=== PATIENT | female | born 2000 | race Two or more races ===

== ENCOUNTER 2022-03-06 18:26 | Emergency (ER) | payer MEDICAID, SELFPAY ==
[2022-03-06] VITALS (16 sets, daily range): BP systolic 118–164; BP diastolic 48–121; PULSE 56–90; RESP 14–25; TEMP 37.1; O2SAT 95–100
--- NOTE | 2022-03-06 18:56 | ED.PREGNANCY ---
HPI - General Chief complaint: Abdominal Pain Stated complaint: nausea, +preg, spotting Time Seen by Provider: 03/06/22 18:46 History of Present Illness HPI Narrative: Pt states she has been vomiting for the last several days unable to keep anything down. Pt has had two positive and one negative home test. Pt menses was supposed to be 02/21. Pt had some spotting 02/21 and 02/22 which resolved. Pt says she is constipated and has some abdominal pain with trying to move bowels but not now. Related Data Allergies Allergy/AdvReac Type Severity Reaction Status Date / Time No Known Allergies Allergy Verified 05/20/18 11:16 Review of Systems Review of Systems: All systems reviewed & are unremarkable except as noted in HPI and below Gastrointestinal: Gastrointestinal: Reports constipation, Reports nausea and Reports vomiting Genitourinary: Genitourinary: Reports no additional female genitourinary complaints Exam Const: General: healthy appearing and no acute distress Nutritional Appearance: obese Orientation/consciousness: patient oriented x3 Limitations: no limitations HENMT: Mouth: Yes Normal oral and palatal mucosa present Eyes: EOM: EOMs intact bilaterally Neck: Neck: normal visual inspection Resp: Effort & Inspection: normal respiratory effort Auscultation: clear to auscultation bilaterally Cardio: Rate: regular rate Rhythm: regular rhythm GI: GI Palp: Yes Soft to palpation Auscultation: normal bowel sounds Skin: General skin exam: normal color Rashes: no rashes Wounds: no wounds Neuro: General: patient oriented x3, moves all extremities, no meningeal signs and no focal motor deficits Cranial nerves: Yes Nystagmus not present Speech: normal speech Extrem: General: normal to inspection and no clubbing, cyanosis or edema Psych: Mental Status: mental status grossly normal Affect: normal affect Attitude: cooperative Course Course Emergency Course: pt finally comfortable after fentanyl Vital Signs Vital signs: Vital Signs Temperature 98.7 F 03/06/22 18:23 Pulse Rate 83 03/06/22 18:23 Respiratory Rate 21 H 03/06/22 18:23 Blood Pressure 163/99 H 03/06/22 18:23 Pulse Oximetry 100 03/06/22 18:23 Oxygen Delivery Room Air 03/06/22 18:23 Temperature 98.7 F 03/06/22 18:23 Pulse Rate 65 03/06/22 21:22 Respiratory Rate 16 03/06/22 21:22 Blood Pressure 164/86 H 03/06/22 21:22 Pulse Oximetry 100 03/06/22 21:22 Oxygen Delivery Room Air 03/06/22 18:23 MDM - OB/Uterine Contractions Lab Data Result diagrams: 03/06/22 18:51 03/06/22 18:51 Labs: Lab Results 03/06/22 03/06/22 03/06/22 Range/Units 18:51 18:51 18:51 WBC 7.8 (4.5-10.0) K/mm3 RBC 4.80 (4.2-5.4) M/mm3 Hgb 11.6 L (12.0-15.0) g/dL Hct 38.7 (37.0-47.0) % MCV 80.6 (80-100) fl MCH 24.2 L (26-34) pg MCHC 30.0 L (32-36) g/dl RDW 17.3 H (11.5-14.5) % Plt Count 394 H (150-375) k/mm3 MPV 10.0 (7.4-10.4) fl Immature Gran % (Auto) 0.1 (0-0.5) % Neut % (Auto) 50.0 (45.5-73.1) % Lymph % (Auto) 40.0 (18.3-44.2) % [place] % (Auto) 7.7 (2.6-8.5) % Eos % (Auto) 1.7 (0-4.4) % Baso % (Auto) 0.5 (0.2-1.2) % Lymph # (Auto) 3.12 (0.9-3.2) K/mm3 [place] # (Auto) 0.6 (0.1-0.6) K/mm3 Eos # (Auto) 0.1 (0-0.3) K/mm3 Baso # (Auto) 0.0 (0.0-0.1) K/mm3 Abs Immat Gran (auto) 0.01 (0.00-0.031) K/mm3 Absolute Neuts (auto) 3.9 (1.3-6.7) K/mm3 Absolute Nucleated RBC 0.0 (0.0-0.012) K/mm3 Nucleated RBC % 0.0 (0.0-0.2) % Sodium 139 (137-145) mmol/L Potassium 3.8 (3.4-5.0) mmol/L Chloride 106 (98-107) mmol/L Carbon Dioxide 22 (22-30) mmol/L Anion Gap 11 (8-16) mmol/L BUN 9 (7-17) mg/dL Creatinine 0.80 (0.7-1.0) mg/dL Estim Creat Clear Calc 157 ml/min Estimated GFR > 60 (59 - ) Glucose 112 H (65-110) mg/dL Calcium 9.4 (
[2022-03-06 19:00] LABS: Basophils Percent Auto 0.5 % (0.2-1.2); Eosinophils Absolute Auto 0.1 K/mm3 (0-0.3); Eosinophils Percent Auto 1.7 % (0-4.4); Hematocrit 38.7 % (37.0-47.0); Hemoglobin 11.6 g/dL (12.0-15.0); Immature Granulocyte Absolute 0.01 K/mm3 (0.00-0.031); Immature Granulocyte Percent A 0.1 % (0-0.5); Lymphocytes Absolute Auto 3.12 K/mm3 (0.9-3.2); Mean Corpuscular Hemoglobin 24.2 pg (26-34); Mean Corpuscular Volume 80.6 fl (80-100); Monocytes Absolute Auto 0.6 K/mm3 (0.1-0.6); Monocytes Percent Auto 7.7 % (2.6-8.5); Neutrophils Absolute Auto 3.9 K/mm3 (1.3-6.7); Platelet Count Result 394 k/mm3 (150-375); Red Cell Distribution Width 17.3 % (11.5-14.5); White Blood Count 7.8 K/mm3 (4.5-10.0)
[2022-03-06 19:02] LABS: Appearance Urine Cloudy (Clear); Bilirubin Urine 1+ (Negative); Blood Urine 3+ (Negative); Color Urine Yellow (Yellow); Glucose Urine UA Negative (Negative); Ketones Urine 1+ mg/dL (Negative); Leukocyte Esterase Ur Trace LEU/UL (Negative); Nitrate Urine Negative (Negative); Protein Urine 1+ mg/dL (Negative); Specific Grav Ur 1.025 (1.001-1.035); Urobilinogen Urine 0.2 mg/dL (<2.0)
[2022-03-06] MEDS: ONDANSETRON INJ 4 MG/2 ML VIAL IV PUSH (19:03)
[2022-03-06] MEDS: DEXTROSE 5%/LACTATED RINGERS 1,000 ML 999 ML IV CONT (19:06)
[2022-03-06 19:11] LABS: Bacteria Urine Trace /hpf; Mucus Urine Rare /lpf; RBC Urine >75 /hpf (0-2); Squamous Epithelial Cell Urine Many /hpf (Few); WBC Urine 16-20 /hpf
[2022-03-06 19:12] LABS: Add Urine Microscopic? YES; Alanine Aminotransferase 10 U/L (6-35); Albumin Level 4.3 g/dL (3.5-5.1); Alkaline Phosphatase 60 U/L (38-126); Anion Gap 11 mmol/L (8-16); Aspartate Amino Transferase 17 U/L (14-36); Bilirubin,Total 0.2 mg/dL (0.2-1.3); Blood Urea Nitrogen 9 mg/dL (7-17); Calcium 9.4 mg/dL (8.4-10.2); Carbon Dioxide 22 mmol/L (22-30); Chloride 106 mmol/L (98-107); Estimated CRCL calculation 157 ml/min; Estimated Glomerular Filt Rate > 60; Glucose 112 mg/dL (65-110); Lipase 62 U/L (23-300); Potassium 3.8 mmol/L (3.4-5.0); Sodium 139 mmol/L (137-145)
[2022-03-06] MEDS: FAMOTIDINE 20 MG/2 ML VIAL IV PUSH (19:59)
[2022-03-06] MEDS: fentaNYL CITRATE INJ (*CRX) 100 MCG/2 ML VIAL 25 MCG IV PUSH (21:17)
== END 2022-03-06 21:38 | disposition home or self-care (01) ==
PROVIDERS: Emergency Provider Emergency Medicine
DX: O21.0 Mild hyperemesis gravidarum (principal); Z3A.00 Weeks of gestation of pregnancy not specified
CPT/HCPCS: 36415; 80053; 81001; 81025; 83690; 85025; 87086; 87088; 96365; 96366; 96367; 96375; 99284; J0131; J2405; J3010; J7121

== ENCOUNTER 2022-07-10 08:08 | Outpatient (CLI) | payer MEDICAID, SELFPAY ==
--- NOTE | ~2022-07-10 | US_ITS ---
EXAMINATION: US right upper quadrant DATE: 07/10/2022 08:53 INDICATION: Right upper quadrant pain TECHNIQUE: Multiple grayscale and Doppler ultrasound images of the abdomen were obtained. COMPARISON: None available FINDINGS: Bowel gas obscures visualization of the pancreas. The visualized portions of the pancreas a re unremarkable. The liver is normal with normal echogenicity and echotexture. No surface nodularity. Normal hepatopetal flow in the main portal vein. Stones and sludge are present in the nondistended g allbladder. There is no gallbladder wall thickening or pericholecystic fluid. The normal common bile duct measures 4 mm. There was no sonographic Balbuena sign. IMPRESSION: 1. Stones and sludge in the otherwise normal gallbladder. Reviewed, dictated and finalized at location A.
== END 2022-07-10 08:09 | disposition home or self-care (01) ==
PROVIDERS: PCP Obstetrics & Gynecology; Visit Provider Emergency Medicine
DX: R10.11 Right upper quadrant pain (principal); K80.20 Calculus of gallbladder without cholecystitis without obstruction
CPT/HCPCS: 76705

== ENCOUNTER 2022-08-18 14:00 | Outpatient (RCR) | payer BC, SELFPAY ==
[2022-08-11 15:37] VITALS: BP 141/71; PULSE 71
--- NOTE | ~2022-08-18 | US_ITS ---
EXAMINATION: US OB BPP wo non-stress DATE: 08/11/2022 15:15 INDICATION: induced hypertension, third trimester TECHNIQUE: Real-time pelvic ultrasound was performed. The interpreting radiologist was not present fo r the study. COMPARISON: None. FINDINGS: There is a single living fetus in vertex presentation. The placenta is posterior. heart rate is 150 beats per minute (bpm). Biophysical profile performed by the technologist: breathing (30 sec sustained breathing in 30 minutes): 2 out of 2 movement (3 gross body movements in 30 minutes): 2 out of 2 tone (one episode of awfmvom-hlteuwske-moghmxo limb movement): 2 out of 2 Amniotic fluid pocket (2 cm): 2 out of 2 Total score: 8 out of 8 IMPRESSION: 1. Single living fetus in vertex presentation. 2. Biophysical profile 8 out of 8. Reviewed, dictated and finalized at location F. S ADVISOR
== END 2022-09-22 13:41 | disposition home or self-care (01) ==
LOC: ANHOBOP 14:00
PROVIDERS: Visit Provider Obstetrics & Gynecology
DX: O16.3 Unspecified maternal hypertension, third trimester (principal); Z3A.32 32 weeks gestation of pregnancy
CPT/HCPCS: 59025; 76819

== ENCOUNTER 2022-09-15 06:43 | Inpatient (IN) | payer OTHER, SELFPAY ==
[2022-09-15] VITALS (65 sets, daily range): BP systolic 98–194; BP diastolic 53–154; PULSE 47–166; RESP 12–20; TEMP 36–36.4; O2SAT 93–100; BMI 47.6
[2022-09-15] MEDS: LACTATED RINGERS 1,000 ML 999 ML IV CONT (07:12)
--- NOTE | 2022-09-15 07:19 | WPDANESEPPF ---
Anes - Initial Pre Proc Eval Procedure: Operation Date: 09/15/22 07:30 Proposed Procedures p Section - Naya Poole MD Date/Time: 09/15/22 07:19 Surgeon: Naya Poole MD Pre Op Diagnosis: C/S Patient Data Age: 22 Gender: F Height: 1.7 m Weight: 138 kg Last Vital Signs Pulse 134 H 09/15/22 07:16 BP 140/117 H 09/15/22 07:16 Allergies Allergy/AdvReac Type Severity Reaction Status Date / Time No Known Allergies Allergy Verified 05/20/18 11:16 Home Medications Medication Instructions Recorded Confirmed Type famotidine 20 mg tablet (Pepcid) 20 mg PO DAILY #20 tabs 03/06/22 09/15/22 Rx PNV 153-FA 400 mcg-om3 35 mg-dha 1 tablet PO DAILY 09/15/22 09/15/22 History 25 mg-epa 5 mg-fish oil chew tablet ( Gummies) fluoxetine 20 mg tablet 20 mg PO DAILY 09/15/22 09/15/22 History Laboratory Tests 09/15/22 09/15/22 09/15/22 07:09 07:09 07:09 WBC Pending RBC Pending Hgb Pending Hct Pending MCV Pending MCH Pending MCHC Pending RDW Pending Plt Count Pending MPV Pending Immature Gran % (Auto) Pending Neut % (Auto) Pending Lymph % (Auto) Pending [place] % (Auto) Pending Eos % (Auto) Pending Baso % (Auto) Pending Lymph # (Auto) Pending [place] # (Auto) Pending Eos # (Auto) Pending Baso # (Auto) Pending Abs Immat Gran (auto) Pending Absolute Neuts (auto) Pending Absolute Nucleated RBC Pending Nucleated RBC % Pending Sodium Potassium Chloride Carbon Dioxide Anion Gap BUN Creatinine Estim Creat Clear Calc Estimated GFR Glucose Uric Acid Calcium Total Bilirubin AST ALT Alkaline Phosphatase Total Protein Albumin RPR Pending Hep Bs Antigen Hepatitis C Ab Screen HIV 1&2 Ab/P24 Ag 4thGn Rubella IgG Antibody Pending 09/15/22 09/15/22 09/15/22 07:09 07:09 07:09 WBC RBC Hgb Hct MCV MCH MCHC RDW Plt Count MPV Immature Gran % (Auto) Neut % (Auto) Lymph % (Auto) [place] % (Auto) Eos % (Auto) Baso % (Auto) Lymph # (Auto) [place] # (Auto) Eos # (Auto) Baso # (Auto) Abs Immat Gran (auto) Absolute Neuts (auto) Absolute Nucleated RBC Nucleated RBC % Sodium Potassium Chloride Carbon Dioxide Anion Gap BUN Creatinine Estim Creat Clear Calc Estimated GFR Glucose Uric Acid Calcium Total Bilirubin AST ALT Alkaline Phosphatase Total Protein Albumin RPR Hep Bs Antigen Pending Hepatitis C Ab Screen Pending HIV 1&2 Ab/P24 Ag 4thGn Pending Rubella IgG Antibody 09/15/22 07:12 WBC RBC Hgb Hct MCV MCH MCHC RDW Plt Count MPV Immature Gran % (Auto) Neut % (Auto) Lymph % (Auto) [place] % (Auto) Eos % (Auto) Baso % (Auto) Lymph # (Auto) [place] # (Auto) Eos # (Auto) Baso # (Auto) Abs Immat Gran (auto) Absolute Neuts (auto) Abs
[2022-09-15 07:21] LABS: Basophils Percent Auto 0.5 % (0.2-1.2); Eosinophils Absolute Auto 0.1 K/mm3 (0-0.3); Hematocrit 33.6 % (37.0-47.0); Hemoglobin 10.6 g/dL (12.0-15.0); Immature Granulocyte Absolute 0.01 K/mm3 (0.00-0.031); Immature Granulocyte Percent A 0.2 % (0-0.5); Lymphocytes Absolute Auto 2.37 K/mm3 (0.9-3.2); Lymphocytes Percent Auto 36.6 % (18.3-44.2); Mean Corpuscular HGB Conc 31.5 g/dl (32-36); Mean Corpuscular Hemoglobin 26.8 pg (26-34); Mean Corpuscular Volume 84.8 fl (80-100); Mean Platelet Volume 9.7 fl (7.4-10.4); Monocytes Absolute Auto 0.5 K/mm3 (0.1-0.6); Monocytes Percent Auto 6.9 % (2.6-8.5); Neutrophils Absolute Auto 3.5 K/mm3 (1.3-6.7); Neutrophils Percent Auto 53.8 % (45.5-73.1); Platelet Count Result 336 k/mm3 (150-375); Red Blood Count 3.96 M/mm3 (4.2-5.4); Red Cell Distribution Width 15.4 % (11.5-14.5); White Blood Count 6.5 K/mm3 (4.5-10.0)
--- NOTE | 2022-09-15 07:42 | P.HP_ITS ---
H&P: HPI History of Present Illness Date/Time: 09/15/22 07:42 Chief Complaint: primary CS Narrative: Nelida is a 22yo G1 at 37.1 for primary CS fpr marginal previa, severe IUGR<3%, chronic hypertension, BMI >50, depression, and noncompliance. She was late this am and admits to smoking MJ this am. FHT nonreactive, min to mod variability, no decels. Review of Systems Review of Systems: All systems reviewed & are unremarkable except as noted in HPI and below PMFSH Family History Family History Other No pertinent family history Social History Social History Smoking status: Current every day smoker Tobacco type: cigarettes Second hand tobacco smoke exposure: Yes Substance use: current Last use: 09/15/22 Lack of Transportation: YES Lack of Food: Often True Current Housing: I Have Housing Concerned About Future Housing: No Difficulty Paying Gas/Electric Bills: No Difficulty Paying for Meds: YES Currently Unemployed: No Education: Grade School Difficulty w/ Childcare or Family Care: No Spiritual care concerns: No Meds Home Medications and Allergies Home Medications Medication Instructions Recorded Confirmed Type famotidine 20 mg tablet (Pepcid) 20 mg PO DAILY #20 tabs 03/06/22 09/15/22 Rx PNV 153-FA 400 mcg-om3 35 mg-dha 1 tablet PO DAILY 09/15/22 09/15/22 History 25 mg-epa 5 mg-fish oil chew tablet ( Gummies) fluoxetine 20 mg tablet 20 mg PO DAILY 09/15/22 09/15/22 History Allergies Allergy/AdvReac Type Severity Reaction Status Date / Time No Known Allergies Allergy Verified 05/20/18 11:16 Vital Signs Vital Signs - 24 hr 09/15/22 07:06 09/15/22 07:16 09/15/22 07:31 Pulse Rate 83 134 H 84 Blood Pressure 142/90 H 140/117 H 135/81 Exam Const: General: no acute distress Resp: Effort & Inspection: normal respiratory effort Auscultation: clear to auscultation bilaterally Cardio: Rate: regular rate Rhythm: regular rhythm GI: GI Palp: Yes Soft to palpation Extrem: General: normal to inspection H&P: Results Labs Labs: Short CBC 09/15/22 Range/Units 07:09 WBC 6.5 (4.5-10.0) K/mm3 Hgb 10.6 L (12.0-15.0) g/dL Hct 33.6 L (37.0-47.0) % Plt Count 336 (150-375) k/mm3 Assessment and Plan Assessment and plan (1) Marginal placenta previa: Code(s): O44.20 - Partial placenta previa NOS or without hemorrhage, unspecified trimester Status: Acute (2) Chronic hypertension affecting : Code(s): O10.919 - Unspecified pre-existing hypertension complicating , unsp ecified trimester Status: Acute (3) IUGR (intrauterine growth restriction): Status: Acute (4) Obesity affecting : Code(s): O99.210 - Obesity complicating , unspecified trimester Status: Acute Plan Discussed RBA CS for the above indications, especially previa. COnsented, questions answered.
[2022-09-15] MEDS: ceFAZolin 3 GM/D5W 100 ML 100 ML IVPB (07:48)
--- NOTE | 2022-09-15 07:48 | WPDHPUPDATE1 ---
History and Physical Update Update Date/Time: 09/15/22 07:48 History and Physical has been reviewed, including an updated exam of the patient. There are NO changes in the patient's condition. Risks, benefits, and alternatives have been discussed and questions answered. Patient agrees to proceed with procedure.
[2022-09-15 08:12] LABS: HIV 1/2 Ab P24 Ag Result Negative (Negative)
[2022-09-15] MEDS: KETOROLAC 30 MG/ML VIAL (*BKC) IV PUSH ×2 (08:20→17:48)
[2022-09-15 08:36] LABS: Alanine Aminotransferase 9 U/L (6-35); Albumin Level 3.4 g/dL (3.5-5.1); Alkaline Phosphatase 265 U/L (38-126); Anion Gap 3 mmol/L (8-16); Aspartate Amino Transferase 16 U/L (14-36); Bilirubin,Total 0.4 mg/dL (0.2-1.3); Blood Urea Nitrogen 11 mg/dL (7-17); Calcium 8.5 mg/dL (8.4-10.2); Carbon Dioxide 23 mmol/L (22-30); Chloride 109 mmol/L (98-107); Estimated CRCL calculation 159 ml/min; Estimated Glomerular Filt Rate > 60; Glucose 85 mg/dL (65-110); Sodium 135 mmol/L (137-145); Uric Acid 4.4 mg/dL (2.5-7.5)
[2022-09-15 08:39] LABS: Amphetamine Screen Urine Negative (Negative); Barbiturate Screen Urine Negative (Negative); Benzodiazepines Screen Urine Negative (Negative); Cannabinoid Screen Urine Positive (Negative); Cocaine Screen Urine Negative (Negative); Methadone Screen Urine Negative (Negative); Opiate Screen Urine Negative (Negative); Phencyclidine Screen Urine Negative (Negative)
--- NOTE | 2022-09-15 08:55 | PM.OBPRVD ---
OB - Delivery Note Procedure Delivery date: 09/15/22 Procedure: Procedures Operation Date: 09/15/22 07:30 <No data on this case meets the specified criteria> Primary low transverse section Events: Chronic Hypertension, Intrauterine Growth Restriction (IUGR) and Placenta Previa Route of delivery: Specimen: Yes (placenta) Quantitative Blood Loss (ml): 405 Anesthesia type: Spinal Disposition: Floor Complications: none Narrative: The patient was taken to the OR and had her epidural anesthesia dosed adequately. She was placed in dorsal supine position with left lateral tilt. SCDs and wilkins had been placed. She was prepped and draped in the normal sterile fashion. A Pfannensteil skin incision was made and carried through to the underlying layer of fascia. The fascia was incised in the midline and then extended laterally using Rivera scissors. The muscles were in the midline and the peritoneum was entered bluntly. The peritoneal incision was extended inferiorly and superiorly with care to avoid the bladder. The bladder blade was then inserted, the vesicouterine peritoneum was grasped, incised with Metzenbaum scissors, and a bladder flap created. The bladder blade was reinserted. A low transverse uterine incision was made with a scalpel and extended bluntly. AROM was performed and fluid was noted to be clear. The head was delivered, followed by the remainder of the baby. The baby's oropharynx was suctioned. After 30 seconds, the cord was clamped and cut and the infant was handed off. Cord blood was obtained and the placenta was then removed manually. The uterus was exteriorized. A moist lap sponge was used to curette the endometrium. The uterine incision was then closed with one layer of 0-Vicryl in a running, locking fashion. Good hemostasis was noted. The posterior cul de sac was irrigated with normal saline and cleared of all clot and debris. The uterus was returned to the abdomen. Both lateral gutters were then irrigated. The rectus muscles were inspected and found to be hemostatic. The fascia was reapproximated using 0-Vicryl in running fashion. The subcutaneous tissue was irrigated with normal saline and made hemostatic with Bovie electrocautery. The subcutaneous tissue was reapproximated with a layer of running 2-0 plain gut. The skin was then closed with absorbable nick. Steri strips and a bandage were applied. The uterus was evacuated. The patient tolerated the procedure very well. All counts were correct. She was taken to the recovery room in good condition. Baby Date of : 09/15/22 Time of : 08:19 Weeks of gestation at delivery: 37 gender: Female Weight (pounds): 5 Weight (ounces): 1 presentation: vertex Placenta delivery description: Manual Removal Cord Vessel Description: 3 Vessels and Delayed Cord Clamping score one minute: 8 score five minutes: 9
[2022-09-15] MEDS: OXYTOCIN 30 UNITS/NS 500 ML 30 UNITS/500 ML BAG 125 UNITS IV CONT (09:08)
--- NOTE | 2022-09-15 11:18 | PC.NURSE ---
Patient transferred to post room #290 via stretcher. Support person present. Oriented to unit, room, information board, rooming in, admission packet and security measures. Patient verbalizes understanding.
[2022-09-15] MEDS: DEXTROSE 5%/0.45% SOD CHL 1,000 ML 125 ML IV CONT (13:32)
[2022-09-15] MEDS: diphenhydrAMINE HCl INJ 50 MG/ML VIAL 25 MG IV PUSH (14:01)
[2022-09-15] MEDS: FLUoxetine HCL 20 MG CAPSULE PO (14:03)
[2022-09-15] MEDS: FAMOTIDINE 20 MG TABLET PO (14:03)
[2022-09-15 14:46] LABS: Rapid Plasma Reagin Non-Reactive (NonReactive)
[2022-09-15 17:04] LABS: Hepatitis B Surface Antigen Negative (Negative); Rubella IgG Antibody 16.9 IU/ML
[2022-09-15 17:24] LABS: Hepatitis C Virus Antibody Negative (Negative)
[2022-09-15] MEDS: KCL 20 MEQ/D5/0.45% SOD CHL 1,000 ML 125 ML IV CONT (21:13)
[2022-09-16] MEDS: HYDROcodone/acetaminophen (*CRX) 5-325 MG TABLET 1 TAB PO ×3 (04:42→20:43)
[2022-09-16] MEDS: IBUPROFEN 600 MG TABLET PO ×3 (04:43→20:44)
[2022-09-16 04:45] VITALS: BP 137/73; PULSE 71; RESP 18; TEMP 36.6
[2022-09-16 06:30] LABS: Basophils Percent Auto 0.3 % (0.2-1.2); Eosinophils Absolute Auto 0.2 K/mm3 (0-0.3); Eosinophils Percent Auto 1.8 % (0-4.4); Hematocrit 30.4 % (37.0-47.0); Hemoglobin 9.2 g/dL (12.0-15.0); Immature Granulocyte Absolute 0.02 K/mm3 (0.00-0.031); Immature Granulocyte Percent A 0.2 % (0-0.5); Lymphocytes Absolute Auto 1.74 K/mm3 (0.9-3.2); Lymphocytes Percent Auto 19.4 % (18.3-44.2); Mean Corpuscular HGB Conc 30.3 g/dl (32-36); Mean Corpuscular Hemoglobin 26.6 pg (26-34); Mean Corpuscular Volume 87.9 fl (80-100); Mean Platelet Volume 10.4 fl (7.4-10.4); Monocytes Absolute Auto 0.6 K/mm3 (0.1-0.6); Monocytes Percent Auto 6.9 % (2.6-8.5); Neutrophils Absolute Auto 6.4 K/mm3 (1.3-6.7); Neutrophils Percent Auto 71.4 % (45.5-73.1); Platelet Count Result 289 k/mm3 (150-375); Red Blood Count 3.46 M/mm3 (4.2-5.4); Red Cell Distribution Width 15.6 % (11.5-14.5)
[2022-09-16 07:30] VITALS: BP 132/81; PULSE 67; RESP 18; TEMP 36.7
--- NOTE | 2022-09-16 07:48 | WPDANLDPN2 ---
Anes-Prog Note L&D Date/Time: 09/16/22 07:48 Comfortable throughout: section Neuraxial method: spinal Epidural/Spinal procedure site: clean & non-tender Neuro status: Neuro function grossly intact. Cardiovascular status: normal Respiratory status: normal Airway patency: baseline Mental status: baseline Post-Op hydration status: normal Vital Signs: Last Vital Signs Temp 36.6 C 09/16/22 04:45 Pulse 71 09/16/22 04:45 Resp 18 09/16/22 04:45 BP 137/73 09/16/22 04:45 Pulse Ox 99 09/15/22 15:30 O2 Del Method Room Air 09/15/22 09:15 Pain score (VAS): 2/10 I/O: Intake & Output 09/15/22 09/15/22 09/16/22 15:59 23:59 07:59 Intake Total 322 582 9052 Output Total 855 50 750 Balance -455 190 750 Post-procedural complaints: none Patient feedback: Patient satisfied with anesthetic care.
--- NOTE | 2022-09-16 07:49 | WPDANLDNPN2 ---
Anes-Prog Note L&D-Neuraxial Date/Time: 09/16/22 07:49 Neuraxial medications: intrathecal PF morphine Opiod-related complaints: none Patient feedback: Patient satisfied with post-operative pain management.
--- NOTE | 2022-09-16 08:32 | PM.OBPNVD ---
OB - PN: Subj Subjective Date/time seen: 09/16/22 08:32 s/p section day 1, no complaints OB - PN: Obj Data Labs 09/16/22 04:46 09/15/22 07:12 Labs: Laboratory Results - last 24 hr 09/15/22 09/15/22 09/15/22 07:09 07:09 07:09 WBC RBC Hgb Hct MCV MCH MCHC RDW Plt Count MPV Immature Gran % (Auto) Neut % (Auto) Lymph % (Auto) [place] % (Auto) Eos % (Auto) Baso % (Auto) Lymph # (Auto) [place] # (Auto) Eos # (Auto) Baso # (Auto) Abs Immat Gran (auto) Absolute Neuts (auto) Absolute Nucleated RBC Nucleated RBC % Sodium Potassium Chloride Carbon Dioxide Anion Gap BUN Creatinine Estim Creat Clear Calc Estimated GFR Glucose Uric Acid Calcium Total Bilirubin AST ALT Alkaline Phosphatase Total Protein Albumin Urine Opiates Screen Negative Urine Methadone Screen Negative Ur Barbiturates Screen Negative Ur Phencyclidine Scrn Negative Ur Amphetamine Screen Negative U Benzodiazepines Scrn Negative Urine Cocaine Screen Negative U Cannabinoids Screen Positive A RPR Non-reactive Hep Bs Antigen Hepatitis C Ab Screen Rubella IgG Antibody 16.9 09/15/22 09/15/22 09/15/22 07:09 07:09 07:12 WBC RBC Hgb Hct MCV MCH MCHC RDW Plt Count MPV Immature Gran % (Auto) Neut % (Auto) Lymph % (Auto) [place] % (Auto) Eos % (Auto) Baso % (Auto) Lymph # (Auto) [place] # (Auto) Eos # (Auto) Baso # (Auto) Abs Immat Gran (auto) Absolute Neuts (auto) Absolute Nucleated RBC Nucleated RBC % Sodium 135 L Potassium 4.0 Chloride 109 H Carbon Dioxide 23 Anion Gap 3 L BUN 11 Creatinine 0.70 Estim Creat Clear Calc 159 Estimated GFR > 60 Glucose 85 Uric Acid 4.4 Calcium 8.5 Total Bilirubin 0.4 AST 16 ALT 9 Alkaline Phosphatase 265 H Total Protein 7.0 Albumin 3.4 L Urine Opiates Screen Urine Methadone Screen Ur Barbiturates Screen Ur Phencyclidine Scrn Ur Amphetamine Screen U Benzodiazepines Scrn Urine Cocaine Screen U Cannabinoids Screen RPR Hep Bs Antigen Negative Hepatitis C Ab Screen Negative Rubella IgG Antibody 09/16/22 04:46 WBC 9.0 RBC 3.46 L Hgb 9.2 L Hct 30.4 L MCV 87.9 MCH 26.6 MCHC 30.3 L RDW 15.6 H Plt Count 289 MPV 10.4 Immature Gran % (Auto) 0.2 Neut % (Auto) 71.4 Lymph % (Auto) 19.4 [place] % (Auto) 6.9 Eos % (Auto) 1.8 Baso % (Auto) 0.3 Lymph # (Auto) 1.74 [place] # (Auto) 0.6 Eos # (Auto) 0.2 Baso # (Auto) 0.0 Abs Immat Gran (auto) 0.02 Absolute Neuts (auto) 6.4 Absolute Nucleated RBC 0.0 Nucleated RBC % 0.0 Sodium Potassium Chloride Carbon Dioxide Anion Gap BUN Creatinine Estim Creat Clear Calc Estimated GFR Glucose Uric Acid Calcium Total Bilirubin AST ALT Alkaline Phosphatase Total Protein Albumin Urine Opiates Screen Urine Methadone Screen Ur Barbiturates Screen Ur Phencyclidine Scrn Ur Amphetamine Screen U Benzodiazepines Scrn Urine Cocaine Screen U Cannabinoids Screen RPR Hep Bs Antigen Hepatitis C Ab Screen Rubella IgG Antibody OB - PN A/P Plan day: 1 Time Spent With Patient Time: Total time spent is greater than 50% in coordination of care (as documented) at patient's floor/unit and/or counseling patient: Review of Systems Review of Systems: All systems reviewed & are unremarkable except as noted in HPI and below Exam Narrative: Incision CDI Const: General: cooperative and healthy appearing Chest: Chest palpation & inspection: normal inspection of the chest Resp: Effort & Inspection: normal respiratory effort Extrem: Right lower extremity: normal to inspection Left lower extremity: normal to inspection Psyc
[2022-09-16] MEDS: FAMOTIDINE 20 MG TABLET PO (10:06)
[2022-09-16] MEDS: POLYSACCHARIDE IRON COMPLEX 150 MG CAPSULE PO ×2 (10:06→17:53)
[2022-09-16] MEDS: DOCUSATE SODIUM 100 MG CAPSULE PO ×2 (10:06→17:53)
[2022-09-16] MEDS: FLUoxetine HCL 20 MG CAPSULE PO (10:06)
[2022-09-16] MEDS: MULTIVIT/MIN/PREN/FOL AC/IRON TABLET 1 TAB PO (10:07)
[2022-09-16] MEDS: TETANUS,DIPHTHERIA,AC PERTUSSIS ADULT (0.5 ML) BOOSTRIX IM (10:11)
[2022-09-16] MEDS: HYDROcodone/acetaminophen (*CRX) 10-325 MG TABLET 1 TAB PO ×2 (14:59→17:53)
[2022-09-16] MEDS: SIMETHICONE 80 MG TAB.CHEW PO (20:43)
[2022-09-16 21:00] VITALS: BP 138/82; PULSE 83; RESP 16; TEMP 36.6
[2022-09-17] MEDS: HYDROcodone/acetaminophen (*CRX) 10-325 MG TABLET 1 TAB PO (05:26)
[2022-09-17] MEDS: IBUPROFEN 600 MG TABLET PO ×2 (05:27→14:00)
[2022-09-17] MEDS: SIMETHICONE 80 MG TAB.CHEW PO (05:27)
--- NOTE | 2022-09-17 06:55 | P.PNOB_ITS ---
OB - PN: Subj Subjective Date/time seen: 09/17/22 06:55 s/p section day 2 OB - PN: Obj Data Labs 09/16/22 04:46 09/15/22 07:12 OB - PN A/P Plan day: 2 Plan: routine care Time Spent With Patient Time: Total time spent is greater than 50% in coordination of care (as documented) at patient's floor/unit and/or counseling patient: Review of Systems 2 Review of Systems: All systems reviewed & are unremarkable except as noted in HPI and below Exam Narrative: Incision CDI Resp: Effort & Inspection: normal respiratory effort Skin: General skin exam: normal color
[2022-09-17 06:57] VITALS: BP 142/98; PULSE 66; RESP 20; TEMP 36.8; O2SAT 99
--- NOTE | 2022-09-17 06:59 | PC.NURSE ---
Reviewed serial BP's with [facility] with as she was on unit, going to see pt NNO's at this time.
[2022-09-17] MEDS: DOCUSATE SODIUM 100 MG CAPSULE PO (09:30)
[2022-09-17] MEDS: FLUoxetine HCL 20 MG CAPSULE PO (09:30)
[2022-09-17] MEDS: FAMOTIDINE 20 MG TABLET PO (09:30)
[2022-09-17] MEDS: MULTIVIT/MIN/PREN/FOL AC/IRON TABLET 1 TAB PO (09:30)
[2022-09-17] MEDS: POLYSACCHARIDE IRON COMPLEX 150 MG CAPSULE PO (09:30)
[2022-09-17 12:00] VITALS: BP 138/85; PULSE 66; PULSE 68; RESP 20; O2SAT 100; O2SAT 99
[2022-09-17] MEDS: HYDROcodone/acetaminophen (*CRX) 5-325 MG TABLET 1 TAB PO (14:00)
--- NOTE | 2022-09-20 07:57 | PM.OBDSVD ---
DS: Admitting Diagnosis Discharge Date 09/17/22 Admitting Diagnosis delivery DS: Discharge Diagnosis Discharge Diagnosis (1) delivery delivered: Code(s): O82 - Encounter for delivery without indication Status: Acute OB - DS: Summary OB Procedures : None OB Procedures Intrapartum: OB Procedures: : None Peripartum Data Procedures: Procedures Operation Date: 09/15/22 07:30 Actual Procedure Side Surgeon p Section Naya Poole MD Time Spent with Patient Time attestation: Total time spent providing and/or coordinating discharge services: DS: Data Data Completed and Pending Pending studies at discharge: Pending at discharge 09/15/22 08:21 Surgical [PTH] Routine Discharge Plan Discharge Consulting providers: Jyoti Landa ; Chauncey Albert ; Chayito Marie Discharging Clinician: Jyoti Landa Patient Disposition: Home, Self-Care Activity: unlimited Diet: regular Discharge Instructions: Education: Mom and Baby Guide Given to: Mother Follow-Up: Call your delivering provider's office for an appointment to be seen in: 1 Week for blood pressure and incision check Mom and baby should come to the [facility] for the follow-up appointment. Appointment Date/Time: September 19, 2022 at 8:00 am What to expect at your follow-up visit: Blood Pressure Check Physical Assessment Call [phone] if you are unable to keep your appointment time. BREAST CARE: * Wear a snug supportive bra. * For engorgement discomfort: Bottle Feeding: * May apply ice packs Take Ibuprofen 600 mg every 6 hours around the clock to help with pain and swelling of breasts Do NOT try to pump milk, this will cause your body to make more milk ABDOMINAL INCISION: (if applicable) * Pat incision dry with a dry clean towel * Do NOT use lotions for powders on your incision * When showering, allow soap and water to run over the incision, but do not scrub at incision EPISIOTOMY/PERINEAL CARE: * Until bleeding stops, use your kristopher bottle after urinating * Change your pad frequently throughout the day * No tub baths until seen by your physician - You may shower ACTIVITY: * Rest as much as possible. * Do not exercise or lift anything heavier than your baby (such as laundry or other children.) * Avoid stairs or driving as much as possible for about 2 weeks or while taking Perry pain medication. * Do not put anything into the vagina. No douching, tampons, or sexual activity until seen by physician. NOTIFY PHYSICIAN IF YOU HAVE ANY QUESTIONS OR IF ANY OF THE FOLLOWING SYMPTOMS OCCUR: * If your incision becomes red, swollen, or more painful than what you have experienced in the hospital. * If your vaginal bleeding becomes foul smelling. * If your vaginal bleeding becomes more heavy than a period or if your bleeding changes from pink to bright red. However, you may pass an occasional walnut-sized clot once or twice for the first week . * If you experience a sharp, shooting pain in your calves. DIET: * Eat regular, well-balanced meals. * Drink plenty of fluids daily. Patient Instructions: Caring for Your Baby (DC), (DC) Stand Alone Forms: General Discharge Information Follow-up/Referrals: Naya Poole MD [Physician] - 1 Week Discharge Medications: Continued famotidine [Pepcid] 20 mg tablet 20 mg PO DAILY Qty: 20 0RF fluoxetine 20 mg Tablet 20 mg PO DAILY Gummies 400 mcg-35 mg- 25 mg-5 mg Tablet,Chewable 1 tablet PO DAILY Date of admission: 09/15/22 06:43 Primary Care Provider: UNKNOWN,DOCTOR Admitting Provider: Naya Poole Attending physician on admission: Naya Poole Condition: Stable
== END 2022-09-17 15:15 | disposition home or self-care (01) | DRG 540 ==
LOC: ANHLDR 06:47 → ANHOB2 11:27
PROVIDERS: Admitting Provider Obstetrics & Gynecology; Visit Provider Obstetrics & Gynecology
PROC: 10D00Z1 Extraction of Products of Conception, Low, Open Approach (ICD-10-PCS; CPT 59514; principal; 2022-09-15 07:30)
DX: O10.92 Unspecified pre-existing hypertension complicating childbirth (principal); E66.01 Morbid (severe) obesity due to excess calories; Z37.0 Single live birth; Z3A.37 37 weeks gestation of pregnancy; O44.23 Partial placenta previa NOS or without hemorrhage, third trimester; Z23 Encounter for immunization; O36.5930 Maternal care for other known or suspected poor fetal growth, third trimester, not applicable or unspecified; O99.824 Streptococcus B carrier state complicating childbirth; O99.214 Obesity complicating childbirth; O99.324 Drug use complicating childbirth; F12.90 Cannabis use, unspecified, uncomplicated
CPT/HCPCS: 36415; 80053; 80307; 84550; 85025; 86592; 86703; 86762; 86803; 86850; 86900; 86901; 87340; 88307; 90471; 90686; 90715; A9270; G0008; G0432; J0131; J0690; J1200; J1885; J2274; J2370; J2405; J2590; J3480; J7120

== ENCOUNTER 2023-09-01 12:26 | Emergency (ER) | payer OTHER, SELFPAY ==
[2023-09-01 12:38] VITALS: BP 146/77; PULSE 102; RESP 18; TEMP 36.9; O2SAT 98
--- NOTE | 2023-09-01 12:47 | ED.WEAKNESS ---
HPI - Weakness General Chief complaint: Weakness Stated complaint: /Weakness Time Seen by Provider: 09/01/23 12:40 Source: patient Mode of arrival: ambulatory Limitations: no limitations History of Present Illness HPI Narrative: Misty is a 23-year-old female patient presenting to the clinic today with complaints of weakness, fatigue, and nausea for the past week. She reports prior to this she got her flu shot. Denies any known fever but has felt feverish. Patient is 7 months . Reports she is on antibiotics for a urinary tract infection and has 2 days left of these antibiotics(does not know what she is taking) Denies any vaginal bleeding/discharge, urinary symptoms, or abdominal pain. heart tones obtained- 160s and baby is active in the clinic. Related Data Home Medications Medication Instructions Recorded Confirmed PNV 153-FA 400 mcg-om3 35 mg-dha 1 tablet PO DAILY 09/15/22 09/01/23 25 mg-epa 5 mg-fish oil chew tablet ( Gummies) nitrofurantoin 09/01/23 monohydrate/macrocrystals 100 mg capsule Allergies Allergy/AdvReac Type Severity Reaction Status Date / Time No Known Allergies Allergy Verified 05/20/18 11:16 Review of Systems Review of Systems: Pertinent positives per HPI. Patient denies any rash, headache, visual changes, dizziness, sore throat, shortness of breath, chest pain, palpitations, nausea, vomiting, diarrhea, constipation, abdominal pain, or any urinary issues. [facility] Family History Family History Other No pertinent family history Social History Social History Smoking status: Current every day smoker Tobacco type: cigarettes Second hand tobacco smoke exposure: Yes Substance use: current Last use: 09/15/22 Lack of Transportation: YES Lack of Food: Often True Current Housing: I Have Housing Concerned About Future Housing: No Difficulty Paying Gas/Electric Bills: No Difficulty Paying for Meds: YES Currently Unemployed: No Education: Grade School Difficulty w/ Childcare or Family Care: No Spiritual care concerns: No Comments At the time of my signature, I reviewed and agree with the nursing past medical, surgical, social, and family history. There is no relevant family history pertinent to the patient complaint. Exam Narrative: General: Well-developed, morbidly obese, in no apparent distress Head: Normocephalic, atraumatic Eyes: Pupils equally round and reactive to light bilaterally, EOM intact, sclera and conjunctive clear, no discharge, lids normal Ears: TMs intact and clear, ear canals clear, no drainage, grossly hearing normal. Nose: Nares patent, no nasal discharge, no inflammation, no sinus tenderness. Mouth: Oropharynx without lesions or masses, good dentition, MMM. Neck: Supple, trachea midline, no enlargement of anterior or posterior cervical nodes, no thyroid masses or goiter palpable. Cardio: Regular rate and rhythm, s1 and s2 normal, no murmur appreciated. Resp: Clear to auscultation bilaterally anteriorly and posteriorly, no rhonchi, rales, wheezing or rubs Abdomen: , soft, pliable, bowel sounds present in all quadrants, non-tender to light palpation, no organomegly, no CVAT tenderness. Course Course Emergency Course: Portions of this record may have been created with voice recognition software. Level of Care: Express Care Visit Vital Signs Vital signs: Vital Signs Temperature 36.9 C 09/01/23 12:38 Pulse Rate 102 H 09/01/23 12:38 Respiratory Rate 18 09/01/23 12:38 Blood Pressure 146/77 H 09/01/23 12:38 Pulse Oximetry 98 09/01/23 12:38 Oxygen Delivery Room Air 09/01/23 12:38 Temperature 36.9 C 09/01/23 12:38 Pulse Rate 102 H 09/01/23 12:38 Respiratory Rate 18 09/01/23 12:38 Blood Pressure 146/77 H 09/01/23 12:38 Pulse Oxim
== END 2023-09-01 13:10 | disposition short-term general hospital (02) ==
PROVIDERS: Emergency Provider Nurse Practitioner Family; PCP Obstetrics & Gynecology
DX: O99.891 Other specified diseases and conditions complicating pregnancy (principal); E86.0 Dehydration; O23.40 Unspecified infection of urinary tract in pregnancy, unspecified trimester; N39.0 Urinary tract infection, site not specified; Z87.891 Personal history of nicotine dependence; Z20.822 Contact with and (suspected) exposure to COVID-19
CPT/HCPCS: 81003; 87426; 87804; 99213; C9803; G0463

== ENCOUNTER 2023-09-01 13:25 | Emergency (ER) | payer OTHER, SELFPAY ==
[2023-09-01 13:27] VITALS: BP 133/77; PULSE 94; RESP 18; TEMP 36.9; O2SAT 97
[2023-09-01 13:42] LABS: Basophils Percent Auto 0.3 % (0.2-1.2); Eosinophils Absolute Auto 0.1 K/mm3 (0-0.3); Eosinophils Percent Auto 1.2 % (0-4.4); Hematocrit 35.8 % (37.0-47.0); Immature Granulocyte Absolute 0.02 K/mm3 (0.00-0.031); Immature Granulocyte Percent A 0.3 % (0-0.5); Lymphocytes Absolute Auto 1.72 K/mm3 (0.9-3.2); Lymphocytes Percent Auto 24.7 % (18.3-44.2); Mean Corpuscular HGB Conc 30.7 g/dl (32-36); Mean Corpuscular Hemoglobin 25.5 pg (26-34); Mean Corpuscular Volume 83.1 fl (80-100); Mean Platelet Volume 9.7 fl (7.4-10.4); Monocytes Absolute Auto 0.4 K/mm3 (0.1-0.6); Monocytes Percent Auto 6.3 % (2.6-8.5); Neutrophils Absolute Auto 4.7 K/mm3 (1.3-6.7); Neutrophils Percent Auto 67.2 % (45.5-73.1); Platelet Count Result 281 k/mm3 (150-375); Red Blood Count 4.31 M/mm3 (4.2-5.4); Red Cell Distribution Width 16.3 % (11.5-14.5)
--- NOTE | 2023-09-01 13:47 | PC.NURSE ---
pt walked out stating she is not waiting. in NAD
--- NOTE | 2023-09-01 13:51 | PC.NURSE ---
Pt walked back in, partner stated she will wait to be seen. Pt in WR.
[2023-09-01 14:04] LABS: Anion Gap 9 mmol/L (8-16); Blood Urea Nitrogen 6 mg/dL (7-17); Calcium 9.3 mg/dL (8.4-10.2); Carbon Dioxide 20 mmol/L (22-30); Chloride 106 mmol/L (98-107); Estimated Glomerular Filt Rate > 60; Glucose 80 mg/dL (65-110); Sodium 135 mmol/L (137-145)
--- NOTE | 2023-09-01 15:15 | ED.GENADULT ---
HPI - General Adult General Chief complaint: Weakness Stated complaint: weakness Time Seen by Provider: 09/01/23 15:00 Source: patient Mode of arrival: ambulatory Limitations: no limitations History of Present Illness HPI narrative: Patient is a 23-year-old female who presents to the ED with multiple complaints. Patient reports he received her flu shot on 08/26 and began feeling ill 3 days later. She complains of cough, congestion, rhinorrhea, fatigue, weakness, myalgias, nausea, decreased appetite, subjective fevers. Patient is currently 7 months gestation[address] She sees Dr. Eisenberg with [facility]. She denies any abdominal pain, vaginal bleeding. She does note that she was treated for a urinary tract infection a couple of weeks ago. She denies current dysuria, hematuria. Denies vomiting, shortness of breath, chest pain. Related Data Home Medications Medication Instructions Recorded Confirmed PNV 153-FA 400 mcg-om3 35 mg-dha 1 tablet PO DAILY 09/15/22 09/01/23 25 mg-epa 5 mg-fish oil chew tablet ( Gummies) nitrofurantoin 09/01/23 monohydrate/macrocrystals 100 mg capsule Allergies Allergy/AdvReac Type Severity Reaction Status Date / Time No Known Allergies Allergy Verified 05/20/18 11:16 Review of Systems Review of Systems: CONSTITUTIONAL: See HPI. ENT: See HPI. CARDIOVASCULAR: Denies chest pain, palpitations, or edema. RESPIRATORY: See HPI. GASTROINTESTINAL: See HPI. GENITOURINARY: Denies vaginal bleeding, dysuria or hematuria. MUSCULOSKELETAL: Reports myalgia. NEUROLOGIC: Denies headache, numbness, or weakness. All systems reviewed & are unremarkable except as noted in HPI and below [facility] Family History Family History Other No pertinent family history Social History Social History Smoking status: Current every day smoker Tobacco type: cigarettes Second hand tobacco smoke exposure: Yes Substance use: current Last use: 09/15/22 Lack of Transportation: YES Lack of Food: Often True Current Housing: I Have Housing Concerned About Future Housing: No Difficulty Paying Gas/Electric Bills: No Difficulty Paying for Meds: YES Currently Unemployed: No Education: Grade School Difficulty w/ Childcare or Family Care: No Spiritual care concerns: No Exam Narrative: GENERAL: Well appearing, well-nourished, non-toxic, in no acute distress. HEAD: Normocephalic, atraumatic. NECK: Supple. No adenopathy, no masses. RESPIRATORY: Airway patent, respirations nonlabored. Clear to auscultation bilaterally. Slightly course breath sounds bilaterally. CARDIOVASCULAR: Regular rate and rhythm without murmurs, rubs, or gallops. Peripheral pulses 2+ and equal bilaterally. ABDOMINAL: Soft, no tenderness throughout abdomen. Uterus gravid a few finger breaths below xiphoid process. Nondistended. Normoactive BS. MUSCULOSKELETAL: Moves all extremities. No gross deformities. SKIN: Warm, dry, normal color. No rashes. NEURO: A&O X3. Speech clear. Cranial nerves II-XII grossly intact. Steady gait. No ataxic movements. PSYCHIATRIC: Appropriate mood and affect. Normal interaction. Course Vital Signs Vital signs: Vital Signs Temperature 98.4 F 09/01/23 13:27 Pulse Rate 94 09/01/23 13:27 Respiratory Rate 18 09/01/23 13:27 Blood Pressure 133/77 09/01/23 13:27 Pulse Oximetry 97 09/01/23 13:27 Oxygen Delivery Room Air 09/01/23 13:27 Temperature 98.4 F 09/01/23 13:27 Pulse Rate 94 09/01/23 13:27 Respiratory Rate 18 09/01/23 13:27 Blood Pressure 133/77 09/01/23 13:27 Pulse Oximetry 97 09/01/23 13:27 Oxygen Delivery Room Air 09/01/23 13:27 Medical Decision Making MDM Narrative Medical decision making narrative: Patient presented to ED with multiple complaints, URI symptoms, weakness, fatigu
[2023-09-01 15:31] LABS: Creatine Kinase 27 U/L (30-135)
[2023-09-01] MEDS: METOCLOPRAMIDE HCL INJ 10 MG/2 ML VIAL IV PUSH (15:31)
[2023-09-01] MEDS: SODIUM CHLORIDE 0.9% IV 1,000 ML 999 ML IV CONT (15:31)
--- NOTE | 2023-09-01 16:10 | PC.NURSE ---
Patient pressed call light and this RN went in to assist patient. Patient states Im done here. im not sitting her any longer in pain . This RN asked if she needed to get the provider and she states she was done sitting and she was leaving. Patient states I have come here before and just sat and I dont wanna do this anymore . this RN went over risks of leaving AMA and patient verbalized understanding and signed paperwork
[2023-09-01 16:21] LABS: Influenza A QL RT-PCR Negative (Negative); Influenza B QL RT-PCR Negative (Negative); RSV RNA, RT-PCR Positive (Negative); SARS-CoV-2 RNA PCR Negative (Negative)
== END 2023-09-01 16:13 | disposition left against medical advice (07) ==
PROVIDERS: Preventive Medicine Aerospace Medicine; Emergency Provider Physician Assistant; PCP Obstetrics & Gynecology
DX: O99.519 Diseases of the respiratory system complicating pregnancy, unspecified trimester (principal); J06.9 Acute upper respiratory infection, unspecified; B97.4 Respiratory syncytial virus as the cause of diseases classified elsewhere; E86.0 Dehydration; R53.1 Weakness; F17.210 Nicotine dependence, cigarettes, uncomplicated; Z3A.00 Weeks of gestation of pregnancy not specified; Z20.822 Contact with and (suspected) exposure to COVID-19
CPT/HCPCS: 36415; 80048; 81003; 82550; 83735; 85025; 87426; 87637; 87804; 96361; 96374; 99213; 99284; C9803; G0463; J2765; J7030

== ENCOUNTER 2023-10-11 16:38 | Observation (INO) | payer OTHER, SELFPAY ==
--- NOTE | ~2023-10-11 | US_ITS ---
EXAMINATION: US OB BPP wo non-stress DATE: 10/11/2023 18:10 INDICATION: Nonreactive nonstress test, third trimester TECHNIQUE: Real-time pelvic ultrasound was performed. The interpreting radiologist was not present fo r the study. COMPARISON: None. FINDINGS: There is a single living fetus in vertex presentation. The placenta is posterior. heart rate is 135 beats per minute (bpm). The amniotic fluid index is 16.0 cm which is normal (normal range: 7.7 c m to 24.9 cm). Biophysical profile performed by the technologist: breathing (30 sec sustained breathing in 30 minutes): 2 out of 2 movement (3 gross body movements in 30 minutes): 2 out of 2 tone (one episode of mhnwcew-awlzeuyht-cboeakc limb movement): 2 out of 2 Amniotic fluid pocket (2 cm): 2 out of 2 Total score: 8 out of 8 IMPRESSION: 1. Single living fetus in vertex presentation. 2. Biophysical profile 8 out of 8. 3. Normal amniotic fluid index. Reviewed, dictated and finalized at location F. D INSTALLATION WORKER
--- NOTE | 2023-10-11 16:25 | PC.NURSE ---
[id number]--Phone call to Dr. Eisenberg, left message.
--- NOTE | 2023-10-11 16:30 | PC.NURSE ---
Tracing reviewed per provider in her office. Orders for BPP.
--- NOTE | 2023-10-11 16:56 | PC.NURSE ---
Phone call to u/s, state they have the order and will be over in approx. 30 minutes due to ED orders.
[2023-10-11 17:05] VITALS: BMI 40.0
[2023-10-11 17:16] VITALS: BP 115/46; PULSE 73
[2023-10-11 17:31] VITALS: BP 136/86; PULSE 65
[2023-10-11 17:46] VITALS: BP 131/77; PULSE 67
--- NOTE | 2023-10-11 17:55 | PC.NURSE ---
BPP 05/01 per u/s
--- NOTE | 2023-10-11 17:56 | PC.NURSE ---
Phone call to Dr. Eisenberg with report of BPP 05/01. Orders to DC home and to f/u with office tomorrow.
[2023-10-11 18:01] VITALS: BP 151/109; PULSE 77
--- NOTE | 2023-10-14 00:27 | PM.OBTRLD ---
OB - Triage/Final Diagnosis Visit Information Comments/Additional reasons for admission: I have assessed the risk for this patient, Nelida Loredo, and determined that she would benefit from observation care. Final Diagnosis (1) tachycardia: Status: Acute
== END 2023-10-11 18:06 | disposition home or self-care (01) ==
PROVIDERS: Admitting Provider Obstetrics & Gynecology; PCP Obstetrics & Gynecology; Visit Provider Obstetrics & Gynecology
DX: O36.8330 Maternal care for abnormalities of the fetal heart rate or rhythm, third trimester, not applicable or unspecified (principal); Z3A.36 36 weeks gestation of pregnancy
CPT/HCPCS: 76819; G0378; G0379

== ENCOUNTER 2023-10-22 13:28 | Inpatient (IN) | payer OTHER, SELFPAY ==
[2023-10-22] VITALS (13 sets, daily range): BP systolic 91–166; BP diastolic 57–127; PULSE 71–96; TEMP 36.3; BMI 43.1
--- NOTE | ~2023-10-22 | US_ITS ---
EXAMINATION: US OB BPP wo non-stress DATE: 10/22/2023 19:13 INDICATION: IUGR . TECHNIQUE: Real-time ultrasound of the pelvis was performed. COMPARISON: None. FINDINGS: There is a single living fetus in vertex presentation, oblique lie. The placenta is posterior, well distant from the cervix. heart rate is 145 bpm. The amniotic fluid index is 15.1 cm, which is n ormal (5th to 95th percentile is 7.5 to 24.4 cm). Biophysical profile performed by the technologist: breathing (30 sec sustained breathing in 30 minutes): 0 out of 2. movement (3 gross body movements in 30 minutes: 2 out of 2. tone (one episode of uewqctv-easnjxrii-sktsilm limb movement): 2 out of 2. Amniotic fluid pocket (2 cm): 2 out of 2. Total score: 6 out of 8. IMPRESSION: Single living fetus in vertex presentation. Biophysical profile 6 out of 8. . Reviewed, dictated and finalized at location K. R[employer]S MANAGEMENT SUPERVISOR
[2023-10-22] MEDS: CALCIUM CARBONATE (TUMS) 500 MG (200 MG ELEMENTAL) 400 MG PO (20:23)
[2023-10-22] MEDS: PANTOPRAZOLE SODIUM IV 40 MG VIAL IV PUSH (23:56)
[2023-10-22] MEDS: MAG HYDROX/AL HYDROX/SIMETH 30 ML UDC PO (23:56)
[2023-10-23] VITALS (51 sets, daily range): BP systolic 76–181; BP diastolic 28–117; PULSE 48–168; RESP 16–20; TEMP 36–36.4; O2SAT 89–100
[2023-10-23 00:25] LABS: Basophils Percent Auto 0.3 % (0.2-1.2); Eosinophils Percent Auto 0.5 % (0-4.4); Hemoglobin 10.8 g/dL (12.0-15.0); Immature Granulocyte Absolute 0.01 K/mm3 (0.00-0.031); Immature Granulocyte Percent A 0.2 % (0-0.5); Lymphocytes Absolute Auto 2.76 K/mm3 (0.9-3.2); Lymphocytes Percent Auto 43.1 % (18.3-44.2); Mean Corpuscular HGB Conc 30.9 g/dl (32-36); Mean Corpuscular Hemoglobin 24.6 pg (26-34); Mean Corpuscular Volume 79.7 fl (80-100); Mean Platelet Volume 10.4 fl (7.4-10.4); Monocytes Absolute Auto 0.4 K/mm3 (0.1-0.6); Monocytes Percent Auto 6.7 % (2.6-8.5); Neutrophils Absolute Auto 3.2 K/mm3 (1.3-6.7); Neutrophils Percent Auto 49.2 % (45.5-73.1); Platelet Count Result 381 k/mm3 (150-375); Red Blood Count 4.39 M/mm3 (4.2-5.4); White Blood Count 6.4 K/mm3 (4.5-10.0)
--- NOTE | 2023-10-23 00:28 | LDADM ---
This patient, Nelida Loredo, was admitted to OB Post 116 on 10/22/23 at 22:36. Plans for labor, pain management and were discussed with patient. Patient/family oriented to hospital policies and general routines including ID bracelet, bed and alarms, visiting hours, pain management, procedures, bathroom and other care routines, personal items, smoking policy, room service/diet and guest tray routines, infant security routines, and visiting hours. Patient/Family are encouraged to report perceived risks to care and to ask questions if they do not understand what they are told or what they should do. See OBIX for further documentation.
[2023-10-23 01:08] LABS: Rubella IgG Antibody 18.9 IU/ML
[2023-10-23 01:10] LABS: Hepatitis B Surface Antigen Negative (Negative)
[2023-10-23 01:17] LABS: HIV 1/2 Ab P24 Ag Result Negative (Negative)
[2023-10-23] MEDS: LACTATED RINGERS 1,000 ML 125 ML IV CONT ×2 (06:38→08:30)
[2023-10-23] MEDS: ONDANSETRON INJ 4 MG/2 ML VIAL IV PUSH (06:46)
[2023-10-23] MEDS: FAMOTIDINE 20 MG/2 ML VIAL IV PUSH (06:47)
[2023-10-23] MEDS: ACETAMINOPHEN 500 MG TABLET 1000 MG PO (06:49)
--- NOTE | 2023-10-23 07:24 | WPDHPUPDATE1 ---
History and Physical Update Update Date/Time: 10/23/23 07:24 History and Physical has been reviewed, including an updated exam of the patient. There are NO changes in the patient's condition. Risks, benefits, and alternatives have been discussed and questions answered. Patient agrees to proceed with procedure.
--- NOTE | 2023-10-23 07:24 | PM.IMHP ---
H&P: HPI History of Present Illness Date/Time: 10/23/23 07:24 Chief Complaint: Term Narrative: 23-year-old multiparous female at 38 weeks gestation with a previous and nonreassuring testing. We agreed to proceed with repeat . She has no complaints. She understands the procedure. She understands the risk. She understands injuries may occur as result in hospitalization, more surgery, and severe illness. She understands risk of hemorrhage and infection. She denies any nausea, vomiting, fever, chills. She denies any chest pain or shortness of breath. Review of Systems Review of Systems: All systems reviewed & are unremarkable except as noted in HPI and below Constitutional: Constitutional: Denies chills, Denies fatigue, Denies fever(s) and Denies weakness Eyes: Eyes: Denies blurry vision, Denies change in vision, Denies loss of peripheral vision, Denies loss of vision, Denies other visual disturbances and Denies eye pain ENT: Denies vertigo, Denies dizziness, Denies hearing loss, Denies mouth pain, Denies nasal obstruction, Denies neck mass and Denies neck pain Cardiovascular: Cardiovascular: Denies chest pain, Denies diaphoresis, Denies syncope, Denies leg edema and Denies dyspnea Respiratory: Respiratory: Denies chest congestion, Denies cough, Denies hemoptysis, Denies dyspnea and Denies wheezing Gastrointestinal: Gastrointestinal: Denies abdominal pain, Denies constipation, Denies diarrhea, Denies nausea and Denies vomiting Genitourinary: Genitourinary: Denies hematuria, Denies change in libido, Denies nocturia, Denies genital lesions, Denies flank pain and Denies urinary urgency Musculoskeletal: Musculoskeletal: Denies abnormal gait, Denies back pain, Denies myalgias, Denies arthralgias, Denies joint swelling, Denies muscle weakness and Denies neck pain Integumentary/Breasts: Skin/Breast: Denies swelling, Denies breast pain, Denies breast mass, Denies dry skin, Denies nipple discharge, Denies unusual bruising and Denies jaundice Neurologic: Denies Neuro-related abnormal movements, Denies Abnormal speech present, Denies abnormal gait, Denies behavioral changes, Denies confusion, Denies vertigo, Denies dizziness, Denies syncope, Denies loss of vision, Denies memory loss, Denies convulsions and Denies weakness Psychiatric: Psychiatric: Denies abnormal sleep pattern, Denies behavioral changes, Denies change in libido, Denies confusion, Denies depression, Denies anhedonia and Denies memory loss Endocrine: Endocrine: Reports no additional endocrine complaints, Denies change in libido and Denies fatigue Hematologic/Lymphatic: Hematologic/Lymphatic: Reports no additional hematologic/lymphatic complaints Allergic/Immunologic: Allergic/Immunologic: Reports no additional allergic/immunologic complaints and Denies wheezing PMF Family History Family History Other No pertinent family history Social History Social History Smoking status: Never smoker Tobacco type: cigarettes Second hand tobacco smoke exposure: Yes Substance use: current Last use: 09/15/22 Do You Feel Safe in your Home?: Yes Lack of Transportation: YES Lack of Food: Sometimes True Current Housing: I Have Housing Concerned About Future Housing: No Difficulty Paying Gas/Electric Bills: YES Difficulty Paying for Meds: YES Currently Unemployed: YES Education: Grade School Difficulty w/ Childcare or Family Care: YES Spiritual care concerns: No Meds Home Medications and Allergies Home Medications Medication Instructions Recorded Confirmed Type PNV 153-FA 400 mcg-om3 35 mg-dha 1 tablet PO DAILY 09/15/22 10/11/23 History 25 mg-epa 5 mg-fish oil chew tablet ( Gummies) cephalexin 500 mg capsule 500 mg PO Q6H 10/11/23 10/11/23 History omeprazole 20 mg capsule,d
--- NOTE | 2023-10-23 07:24 | WPDANESEPPF ---
Anes - Initial Pre Proc Eval Procedure: Operation Date: 10/23/23 09:30 Proposed Procedures p Section(Not Applicable) - Kiera Monahan MD Date/Time: 10/23/23 07:24 Surgeon: Kiera Monahan MD Pre Op Diagnosis: Extended Monitoring Patient Data Age: 23 Gender: F Height: 1.7 m Weight: 125 kg Last Vital Signs Temp 36.3 C L 10/22/23 14:32 Pulse 75 10/23/23 07:16 BP 161/111 H 10/23/23 07:16 Allergies Allergy/AdvReac Type Severity Reaction Status Date / Time No Known Allergies Allergy Verified 05/20/18 11:16 Home Medications Medication Instructions Recorded Confirmed Type PNV 153-FA 400 mcg-om3 35 mg-dha 1 tablet PO DAILY 09/15/22 10/11/23 History 25 mg-epa 5 mg-fish oil chew tablet ( Gummies) cephalexin 500 mg capsule 500 mg PO Q6H 10/11/23 10/11/23 History omeprazole 20 mg capsule,delayed 20 mg PO DAILY 10/11/23 10/11/23 History release sertraline 25 mg tablet 25 mg PO DAILY 10/11/23 10/11/23 History Laboratory Tests 10/22/23 10/22/23 10/23/23 22:44 22:45 00:06 WBC 6.4 K/mm3 (4.5-10.0) RBC 4.39 M/mm3 (4.2-5.4) Hgb 10.8 L g/dL (12.0-15.0) Hct 35.0 L % (37.0-47.0) MCV 79.7 L fl (80-100) MCH 24.6 L pg (26-34) MCHC 30.9 L g/dl (32-36) RDW 16.0 H % (11.5-14.5) Plt Count 381 H k/mm3 (150-375) MPV 10.4 fl (7.4-10.4) Immature Gran % (Auto) 0.2 % (0-0.5) Neut % (Auto) 49.2 % (45.5-73.1) Lymph % (Auto) 43.1 % (18.3-44.2) [place] % (Auto) 6.7 % (2.6-8.5) Eos % (Auto) 0.5 % (0-4.4) Baso % (Auto) 0.3 % (0.2-1.2) Lymph # (Auto) 2.76 K/mm3 (0.9-3.2) [place] # (Auto) 0.4 K/mm3 (0.1-0.6) Eos # (Auto) 0.0 K/mm3 (0-0.3) Baso # (Auto) 0.0 K/mm3 (0.0-0.1) Abs Immat Gran (auto) 0.01 K/mm3 (0.00-0.031) Absolute Neuts (auto) 3.2 K/mm3 (1.3-6.7) Absolute Nucleated RBC 0.0 K/mm3 (0.0-0.012) Nucleated RBC % 0.0 % (0.0-0.2) RPR Pending Hep Bs Antigen Negative (Negative) HIV 1&2 Ab/P24 Ag 4thGn Negative (Negative) Rubella IgG Antibody 18.9 IU/ML (10 - ) Blood Type A Positive Antibody Screen Negative Patient hx anesthesia problems: none Family hx anesthesia problems: none Results Review: All pre-operative results and documents have been reviewed as part of the pre-operative evaluation. [facility] Family History Family History Other No pertinent family history Social History Social History Smoking status: Never smoker Tobacco type: cigarettes Second hand tobacco smoke exposure: Yes Substance use: current Last use: 09/15/22 Do You Feel Safe in your Home?: Yes Lack of Transportation: YES Lack of Food: Sometimes True Current Housing: I Have Housing Concerned About Future Housing: No Difficulty Paying Gas/Electric Bills: YES Difficulty Paying for Meds: YES Currently Unemployed: YES Education: Grade School Difficulty w/ Childcare or Family Care: YES Spiritual care concerns: No Anes - Eval Final PreProcedure Day of Procedure 10/23/23 07:24 Patient weight: morbidly obese Heart: regular rate and rhythm Lungs: clear to auscultation Airway: Mallampati scale class II Neurological: alert and oriented Last oral intake: >/= 8 hours ASA classification: III Emergent: no Anesthetic plan: proceed Anesthesia type and monitoring: regional spinal and standard monitoring Results Review: All pre-operative results and documents have been reviewed as part of the pre-operative evaluation. Informed Consent: The patient's anesthetic plan and its attendant risks and benefits were discussed wit
[2023-10-23] MEDS: ceFAZolin 3 GM/D5W 100 ML 100 ML IVPB (07:27)
--- NOTE | 2023-10-23 08:44 | P.PCNOB_ITS ---
OB - Delivery Note Procedure Delivery date: 10/23/23 Pre-op diagnosis: Non-Reassuring Status Post-op Diagnosis: Same Procedure Performed: Repeat Surgeon: Kiera Monahan MD Anesthesia type: Spinal Description of Procedure/Findings: The patient was taken the operating room.? She was prepped and draped in dorsal supine position with a leftward tilt.? This was done after spinal anesthetic was applied.? A low-transverse skin incision was made and carried down till of the fascia with the knife.? The fascial incision was made with the knife.? The fascial incision was extended laterally with Rivera scissors.? The fascia was tented upward superiorly and inferiorly the rectus muscles were dissected off bluntly.? The rectus muscles were the midline.? The preperitoneal fat and peritoneum were dissected open bluntly at the superior aspect of the rectus muscles.? The peritoneal incision was extended superior and inferior with good position of bladder.? The uterine incision was made with a scalpel down to the level of the amniotic cavity.? The amniotic cavity was entered bluntly.? The was delivered.? The cord was clamped and cut and the was handed off to waiting pediatric staff.? Cord bloods were obtained.? The placenta was removed manually.? The uterus was exteriorized.? The uterus was cleared of all clots, debris and membranes.? The uterus was closed in 0 Vicryl running lock fashion.? An imbricating over a was placed along the incision line as well.? The uterus was returned to the abdomen.? The gutters were cleared of all clots and debris.? The fascia was closed with 0 Vicryl running fashion.? The subcutaneous tissue was irrigated pinpoint bleeders were cauterized.? The skin was closed with subcuticular absorbable nick.? The skin incision line was covered with glue.? The patient tolerated the procedure well.? She has taken recovery room in stable condition.? Sponge lap and needle counts were correct x2.? Estimated Blood Loss: 400 [place] Baby Weeks of gestation at delivery: 38
[2023-10-23] MEDS: OXYTOCIN 30 UNITS/NS 500 ML 30 UNITS/500 ML BAG 125 UNITS IV CONT (10:30)
[2023-10-23] MEDS: MORPHINE SULFATE INJ (*CRX) 10 MG/ML AMP 3 MG IV PUSH ×2 (10:31)
[2023-10-23] MEDS: diphenhydrAMINE HCl INJ 50 MG/ML VIAL 25 MG IV PUSH (11:39)
[2023-10-23] MEDS: LIDOCAINE 5% PATCH 1 PATCH TRANSDERM (14:00)
[2023-10-23] MEDS: KETOROLAC 30 MG/ML VIAL (*BKC) IV PUSH (14:00)
[2023-10-23] MEDS: KCL 20 MEQ/D5/0.45% SOD CHL 1,000 ML 125 ML IV CONT (15:00)
[2023-10-23 15:56] LABS: Rapid Plasma Reagin Non-Reactive (NonReactive)
[2023-10-23] MEDS: hydrOXYzine HCL 25 MG TABLET PO (16:21)
[2023-10-23] MEDS: SIMETHICONE 80 MG TAB.CHEW PO (16:22)
[2023-10-23] MEDS: DOCUSATE SODIUM 100 MG CAPSULE PO (16:22)
[2023-10-23] MEDS: DEXTROSE 5%/0.45% SOD CHL 1,000 ML 125 ML IV CONT (22:50)
[2023-10-24] MEDS: IBUPROFEN 600 MG TABLET PO ×3 (01:16→16:06)
[2023-10-24] MEDS: HYDROcodone/acetaminophen (*CRX) 5-325 MG TABLET 1 TAB PO ×4 (01:16→17:07)
[2023-10-24 03:25] VITALS: BP 122/61; PULSE 58; RESP 16; TEMP 36.1
[2023-10-24 05:59] LABS: Basophils Percent Auto 0.2 % (0.2-1.2); Eosinophils Absolute Auto 0.1 K/mm3 (0-0.3); Eosinophils Percent Auto 0.5 % (0-4.4); Hematocrit 31.3 % (37.0-47.0); Hemoglobin 9.7 g/dL (12.0-15.0); Immature Granulocyte Absolute 0.05 K/mm3 (0.00-0.031); Immature Granulocyte Percent A 0.5 % (0-0.5); Lymphocytes Absolute Auto 2.32 K/mm3 (0.9-3.2); Lymphocytes Percent Auto 22.4 % (18.3-44.2); Mean Corpuscular Hemoglobin 25.1 pg (26-34); Mean Corpuscular Volume 80.9 fl (80-100); Mean Platelet Volume 10.3 fl (7.4-10.4); Monocytes Absolute Auto 0.5 K/mm3 (0.1-0.6); Monocytes Percent Auto 4.8 % (2.6-8.5); Neutrophils Absolute Auto 7.4 K/mm3 (1.3-6.7); Neutrophils Percent Auto 71.6 % (45.5-73.1); Platelet Count Result 270 k/mm3 (150-375); Red Blood Count 3.87 M/mm3 (4.2-5.4); White Blood Count 10.4 K/mm3 (4.5-10.0)
[2023-10-24] MEDS: DOCUSATE SODIUM 100 MG CAPSULE PO ×2 (07:08→16:05)
[2023-10-24] MEDS: MULTIVIT/MIN/PREN/FOL AC/IRON TABLET 1 TAB PO (07:08)
[2023-10-24] MEDS: POLYSACCHARIDE IRON COMPLEX 150 MG CAPSULE PO ×2 (07:10→16:05)
[2023-10-24] MEDS: HYDROcodone/acetaminophen (*CRX) 10-325 MG TABLET 1 TAB PO ×2 (07:11→21:02)
[2023-10-24] MEDS: SIMETHICONE 80 MG TAB.CHEW PO ×3 (07:11→16:07)
[2023-10-24 07:45] VITALS: BP 137/92; PULSE 90; RESP 16; TEMP 37.4; O2SAT 99
--- NOTE | 2023-10-24 07:56 | PM.OBPNVD ---
OB - PN: Subj Subjective Date/time seen: 10/24/23 07:56 Interval history: pp day 1 repeat section pain not well managed this am baby now in nursery on D10 OB - PN: Obj Data Labs 10/24/23 05:03 Labs: Laboratory Results - last 24 hr 10/22/23 10/24/23 22:44 05:03 WBC 10.4 H RBC 3.87 L Hgb 9.7 L Hct 31.3 L MCV 80.9 MCH 25.1 L MCHC 31.0 L RDW 16.0 H Plt Count 270 MPV 10.3 Immature Gran % (Auto) 0.5 Neut % (Auto) 71.6 Lymph % (Auto) 22.4 [place] % (Auto) 4.8 Eos % (Auto) 0.5 Baso % (Auto) 0.2 Lymph # (Auto) 2.32 [place] # (Auto) 0.5 Eos # (Auto) 0.1 Baso # (Auto) 0.0 Abs Immat Gran (auto) 0.05 H Absolute Neuts (auto) 7.4 H Absolute Nucleated RBC 0.0 Nucleated RBC % 0.0 RPR Non-reactive OB - PN A/P Plan day: 1 Plan: routine care Time Spent With Patient Time: Total time spent is greater than 50% in coordination of care (as documented) at patient's floor/unit and/or counseling patient: Review of Systems Review of Systems: All systems reviewed & are unremarkable except as noted in HPI and below Exam Const: General: acute distress (pain) Resp: Effort & Inspection: normal respiratory effort Cardio: Rate: regular rate GI: Other: incision CDI Skin: General skin exam: normal color Neuro: General: patient oriented x3
[2023-10-24] MEDS: diphenhydrAMINE HCl CAP 25 MG CAPSULE PO (11:07)
--- NOTE | 2023-10-24 13:35 | WPDANLDPN2 ---
Anes-Prog Note L&D Date/Time: 10/24/23 13:35 Comfortable throughout: section Neuraxial method: spinal Epidural/Spinal procedure site: clean & non-tender Neuro status: Neuro function grossly intact. Cardiovascular status: normal Respiratory status: normal Airway patency: baseline Mental status: baseline Post-Op hydration status: normal Vital Signs: Last Vital Signs Temp 99.4 F 10/24/23 07:45 Pulse 90 10/24/23 07:45 Resp 16 10/24/23 07:45 BP 137/92 H 10/24/23 07:45 Pulse Ox 99 10/24/23 07:45 O2 Del Method Room Air 10/23/23 10:15 Pain score (VAS): 0/10 I/O: Intake & Output 10/23/23 10/24/23 10/24/23 23:59 07:59 15:59 Intake Total 1000 240 240 Output Total 1075 Balance 1000 -835 240 Post-procedural complaints: none Patient feedback: Patient satisfied with anesthetic care.
--- NOTE | 2023-10-24 13:35 | WPDANLDNPN2 ---
Anes-Prog Note L&D-Neuraxial Date/Time: 10/24/23 13:35 Neuraxial medications: intrathecal PF morphine Opiod-related complaints: none Patient feedback: Patient satisfied with post-operative pain management.
[2023-10-24] MEDS: LIDOCAINE 5% PATCH 1 PATCH TRANSDERM (16:07)
--- NOTE | 2023-10-24 16:55 | PC.NURSE ---
Report received this morning that mother is bottle feeding formula only. Report received at 1510 that mother put to breast for 3 minutes. [id number] Purposefully rounded to assess for needs. Mother is holding her swaddled and has her 1st child that is 12 months old next to her as well. Mother shares that her 1st child drinks the plant based formula and now that she has a bag of plant based formula for the she is just going to stick with that. Mother denies any assistance with .
[2023-10-24 21:05] VITALS: BP 154/94; PULSE 73; RESP 20; TEMP 36.3
[2023-10-25] MEDS: IBUPROFEN 600 MG TABLET PO ×2 (04:08→15:11)
[2023-10-25] MEDS: HYDROcodone/acetaminophen (*CRX) 10-325 MG TABLET 1 TAB PO ×2 (04:09→08:56)
[2023-10-25] MEDS: CALCIUM CARBONATE (TUMS) 500 MG (200 MG ELEMENTAL) (04:12)
[2023-10-25 08:15] VITALS: BP 147/91; PULSE 84; RESP 16; TEMP 36.2; O2SAT 99
[2023-10-25] MEDS: POLYSACCHARIDE IRON COMPLEX 150 MG CAPSULE PO ×2 (08:55→15:13)
[2023-10-25] MEDS: MULTIVIT/MIN/PREN/FOL AC/IRON TABLET 1 TAB PO (08:55)
[2023-10-25] MEDS: DOCUSATE SODIUM 100 MG CAPSULE PO ×2 (08:55→15:10)
[2023-10-25] MEDS: SIMETHICONE 80 MG TAB.CHEW PO ×2 (08:57→15:10)
--- NOTE | 2023-10-25 09:02 | PM.OBPNVD ---
OB - PN: Subj Subjective Date/time seen: 10/25/23 09:02 Interval history: pp day 1 repeat section pain not well managed this am baby now in nursery on D10 Patient comments: no complaints, pain well controlled, incisional pain, tolerating diet and flatus present OB - PN: Obj Data Labs 10/24/23 05:03 OB - PN A/P Plan day: 2 Plan: routine care Comments: POD#2 LTCS - no problems, Time Spent With Patient Time: Total time spent is greater than 50% in coordination of care (as documented) at patient's floor/unit and/or counseling patient: Exam Const: General: comfortable, no acute distress and alert Resp: Effort & Inspection: normal respiratory effort Auscultation: no crackles, no rales and no rhonchi Cardio: Rate: regular rate Heart sounds: no click, no murmurs and no rubs GI: Inspection: non-distended Auscultation: normal bowel sounds Other: Incision - CDI Extrem: General: normal to inspection, no pedal edema and no calf tenderness
--- NOTE | 2023-10-25 09:02 | PM.OBDSVD ---
DS: Admitting Diagnosis Discharge Date October 25, 2023 Admitting Diagnosis term OB - DS: Summary OB Procedures : None OB Procedures Intrapartum: OB Procedures: : None Peripartum Data Procedures: Procedures Operation Date: 10/23/23 09:30 Actual Procedure Side Surgeon p Section Not Applicable Kiera Monahan MD Time Spent with Patient Time attestation: Total time spent providing and/or coordinating discharge services: DS: Data Data Completed and Pending Pending studies at discharge: Pending at discharge 10/23/23 09:11 Surgical [PTH] Routine Discharge Plan Discharge Discharging Clinician: Kiera Monahan Patient Disposition: Home, Self-Care Activity: pelvic rest Diet: regular Patient Instructions: Antibiotic Form Stand Alone Forms: General Discharge Information Follow-up/Referrals: Kiera Monahan MD [Physician] - Discharge Medications: New oxycodone-acetaminophen 5-325 mg tablet 1 tablet PO Q4H PRN (Reason: pain) Qty: 25 0RF Continued Gummies 400 mcg-35 mg- 25 mg-5 mg Tablet,Chewable 1 tablet PO DAILY cephalexin 500 mg Capsule 500 mg PO Q6H sertraline 25 mg Tablet 25 mg PO DAILY omeprazole 20 mg Capsule,Delayed Release(Dr/Ec) 20 mg PO DAILY Date of admission: 10/22/23 22:36 Primary Care Provider: UNKNOWN,DOCTOR Admitting Provider: Kiera Monahan Attending physician on admission: Kiera Monahan Condition: Stable
[2023-10-25] MEDS: HYDROcodone/acetaminophen (*CRX) 5-325 MG TABLET 1 TAB PO ×2 (15:10→20:00)
[2023-10-25 21:02] VITALS: BP 164/77; PULSE 82; RESP 18; TEMP 36.5; O2SAT 99
[2023-10-26] MEDS: HYDROcodone/acetaminophen (*CRX) 5-325 MG TABLET 1 TAB PO ×3 (00:02→23:27)
[2023-10-26] MEDS: IBUPROFEN 600 MG TABLET PO ×4 (00:02→23:27)
[2023-10-26 07:50] VITALS: BP 146/81; PULSE 65; RESP 16; TEMP 36.9; O2SAT 98
--- NOTE | 2023-10-26 07:54 | PM.OBPNVD ---
OB - PN: Subj Subjective Date/time seen: 10/26/23 07:54 Interval history: pp day 3 repeat section pt resting baby doing well OB - PN: Obj Data Labs 10/24/23 05:03 OB - PN A/P Plan day: 3 Plan: routine care and discharge home Time Spent With Patient Time: Total time spent is greater than 50% in coordination of care (as documented) at patient's floor/unit and/or counseling patient: Review of Systems Review of Systems: All systems reviewed & are unremarkable except as noted in HPI and below Exam Const: General: cooperative Resp: Effort & Inspection: normal respiratory effort Cardio: Rate: regular rate Skin: General skin exam: normal color
--- NOTE | 2023-10-26 07:55 | PM.OBDSVD ---
DS: Admitting Diagnosis Discharge Date 10/26/23 Admitting Diagnosis section DS: Discharge Diagnosis Discharge Diagnosis (1) delivery delivered: Code(s): O82 - Encounter for delivery without indication Status: Acute OB - DS: Summary OB Procedures : None OB Procedures Intrapartum: OB Procedures: : None Peripartum Data Procedures: Procedures Operation Date: 10/23/23 09:30 Actual Procedure Side Surgeon p Section Not Applicable Kiera Monahan MD Time Spent with Patient Time attestation: Total time spent providing and/or coordinating discharge services: DS: Data Data Completed and Pending Pending studies at discharge: Pending at discharge 10/23/23 09:11 Surgical [PTH] Routine Discharge Plan Discharge Attending physician on discharge: Kiera Monahan Discharging Clinician: Kiera Monahan Patient Disposition: Home, Self-Care Activity: pelvic rest Diet: regular Patient Instructions: Antibiotic Form Stand Alone Forms: General Discharge Information Follow-up/Referrals: Kiera Monahan MD [Physician] - Discharge Medications: New oxycodone-acetaminophen 5-325 mg tablet 1 tablet PO Q4H PRN (Reason: pain) Qty: 25 0RF Continued Gummies 400 mcg-35 mg- 25 mg-5 mg Tablet,Chewable 1 tablet PO DAILY cephalexin 500 mg Capsule 500 mg PO Q6H sertraline 25 mg Tablet 25 mg PO DAILY omeprazole 20 mg Capsule,Delayed Release(Dr/Ec) 20 mg PO DAILY Date of admission: 10/22/23 22:36 Primary Care Provider: UNKNOWN,DOCTOR Admitting Provider: Kiera Monahan Attending physician on admission: Kiera Monahan Condition: Stable
[2023-10-26] MEDS: HYDROcodone/acetaminophen (*CRX) 10-325 MG TABLET 1 TAB PO (09:22)
[2023-10-26] MEDS: MULTIVIT/MIN/PREN/FOL AC/IRON TABLET 1 TAB PO (09:24)
[2023-10-26] MEDS: DOCUSATE SODIUM 100 MG CAPSULE PO ×2 (09:24→16:18)
[2023-10-26] MEDS: POLYSACCHARIDE IRON COMPLEX 150 MG CAPSULE PO ×2 (09:25→16:18)
[2023-10-26] MEDS: SIMETHICONE 80 MG TAB.CHEW PO (16:20)
[2023-10-26 19:58] VITALS: BP 142/87; PULSE 73; RESP 18; TEMP 37; O2SAT 100
[2023-10-26] MEDS: CALCIUM CARBONATE (TUMS) 500 MG (200 MG ELEMENTAL) 400 MG (23:28)
[2023-10-27 08:30] VITALS: BP 138/84; PULSE 72; RESP 16; TEMP 37.2; O2SAT 98
[2023-10-27] MEDS: MULTIVIT/MIN/PREN/FOL AC/IRON TABLET 1 TAB PO (08:50)
[2023-10-27] MEDS: DOCUSATE SODIUM 100 MG CAPSULE PO (08:50)
[2023-10-27] MEDS: POLYSACCHARIDE IRON COMPLEX 150 MG CAPSULE PO (08:50)
[2023-10-27] MEDS: SIMETHICONE 80 MG TAB.CHEW PO (08:51)
[2023-10-27] MEDS: HYDROcodone/acetaminophen (*CRX) 10-325 MG TABLET 1 TAB PO (08:51)
== END 2023-10-27 09:56 | disposition home or self-care (01) | DRG 540 ==
LOC: ANHOBPP 23:13 → ANHLDR 10-23 07:53 → ANHOB2 10-23 10:44
PROVIDERS: Admitting Provider Obstetrics & Gynecology; Visit Provider Obstetrics & Gynecology
PROC: 10D00Z1 Extraction of Products of Conception, Low, Open Approach (ICD-10-PCS; CPT 59514; principal; 2023-10-23 09:30)
DX: O34.211 Maternal care for low transverse scar from previous cesarean delivery (principal); Z37.0 Single live birth; Z3A.38 38 weeks gestation of pregnancy; O36.8330 Maternal care for abnormalities of the fetal heart rate or rhythm, third trimester, not applicable or unspecified
CPT/HCPCS: 36415; 76819; 85025; 86592; 86703; 86762; 86850; 86900; 86901; 87340; 88307; A9270; C9113; G0378; G0379; G0432; J0690; J1200; J1885; J2270; J2274; J2371; J2405; J2590; J3480; J7120